=== PATIENT | female | born 1995 ===

== ENCOUNTER 2025-10-02 19:51 | Observation (INO) | payer OTHER, SELFPAY ==
[2025-10-02] VITALS (43 sets, daily range): BP systolic 91–170; BP diastolic 50–95; PULSE 72–141; RESP 10–20; TEMP 36.3–37.3; O2SAT 95–100; BMI 34.0
[2025-10-02 20:27] LABS: Abs Immature Grans 0.04 10^3/uL (0.0-0.06); HCT 34.8 % (36.0-46.0); HGB 11.9 g/dL (11.2-15.7); Immature Grans % 0.4 %; MCH 30.7 pg (27.0-33.0); MCHC 34.2 % (32.0-36.0); MCV 90 fL (80-95); MPV 10.3 fL (8.0-11.0); Platelet Count 191 10^3/uL (130-400); RBC 3.88 10^6/uL (3.93-5.22); RDW 12.3 % (11.7-14.6); RDW-SD 40.0 fL; WBC 9.33 10^3/uL (4.4-10.8)
[2025-10-02] MEDS: Tranexamic Acid 1,000 MG/10 ML VIAL 1000 MG IVP (20:37)
[2025-10-02 20:40] LABS: INR 1.0 (0.9-1.1); PTT Activated 26.0 sec (20.6-30.2); Prothrombin Time 10.0 sec (9.1-11.1)
[2025-10-02 20:43] LABS: ALT 19 U/L (10-49); AST 20 U/L (<34); Albumin 4.2 g/dL (3.2-5.0); Alkaline Phosphatase 74 U/L (46-116); Anion Gap 8.5 mmol/L (3-11); BUN 9 mg/dL (9-23); Bilirubin, Total 0.5 mg/dL (0.2-1.2); CO2 25.5 mmol/L (20.0-31.0); Calcium 9.1 mg/dL (8.3-10.6); Chloride 109 mmol/L (98-107); Glucose 109 mg/dL (74-106); Magnesium 1.9 mg/dL (1.6-2.6); Potassium 3.3 mmol/L (3.5-5.1); Sodium 143 mmol/L (136-145); Total Protein 6.8 g/dL (5.7-8.2)
--- NOTE | 2025-10-02 20:43 | ED.GENADUL_ITS ---
Discharge Plan Disposition Patient Disposition: Admit to [facility] Condition: Serious Discharge Details Clinical Impression: Incomplete miscarriage, Hemorrhagic shock ED Provider: Patricia Ledezma Home Meds and New Rx's Prescriptions: No Action No Known Home Meds HPI General Mode of arrival: EMS . Date/Time Provider Initiated Documentation: 10/02/25 20:17 . Limitations to Documentation: no limitations . Information obtained by: patient, family, EMS and old records reviewed . HPI Narrative: This is a 30-year-old female patient, G2, P1 at an estimated 13 weeks gestation by last menstrual cycle, who experienced a miscarriage with growth arrested at approximately 5 weeks identified on ultrasound on Wednesday, presenting for heavy vaginal bleeding. The patient states that she started to have some spotting on Wednesday, has not received any medications or interventions for her miscarriage as of yet. She is following with Rogelio SECURITY INSTALLATION TECHNICIAN. She states that she started to bleed very heavily this evening, noted a large amount of blood and clots in the toilet bowl. She is experiencing cramping/contraction-like lower abdominal discomfort, was noted to be tachycardic but otherwise hemodyna mically appropriate by EMS, and received IV fluids. Medical control discussed use of TXA, given the early and the lack of hypotension the decision was made to hold given the thromboembolic risks. The patient has not had any prior miscarriages or complications with pregnancies. Had a with her last delivery 3.5 years ago. Otherwise healthy. States that she feels quite dizzy and unwell. Related Data Home Medications ?Medication ?Instructions ?Recorded ?Confirmed Unknown [No Known Home Meds] 10/02/25 1 Allergies Allergy/AdvReac Type Severity Reaction Status Date / Time No Known Allergies Allergy Unverified 10/02/25 21:19 General Stated Complaint: SECURITY INSTALLATION TECHNICIAN MEME: 3 Exam Narrative Exam Narrative: Gen: Awake and alert, in no apparent distress HEENT: Non-icteric sclera Neck: Supple Lungs: No apparent respiratory distress, normal respiratory effort. CV: Appears well perfused, heart with cardiac rate, regular rhythm, strong pulses Abdomen: Non-distended, soft, tender to palpation in the suprapubic region without rigidity, rebound, or guarding. Pelvic: Pelvic examination supervised by CRISTIN Evans, reveals normal external female genitalia with a large amount of bright red blood and large clots pouring out of the vaginal introitus. Numerous 4 x 4's and ring forceps were used to remove blood products from the vaginal vault. I am unable to visualize the cervix due to brisk bleeding. Bimanual examination reveals an open cervix but no cervical motion tenderness. MSK: Moves 4 extremities without apparent limitation in ROM. No peripheral edema Skin: Visualized skin without rashes, cyanosis. Neuro: Normal Gait, no obvious focal deficits or facial asymmetry. Speaks in full, clear sentences. Psych: Appropriate for situation. Course Vital Signs Vital signs: Vital Signs Temperature 37.3 C 10/02/25 19:51 Pulse 110 H 10/02/25 19:51 Respiratory Rate 20 10/02/25 19:51 Blood Pressure 170/95 H 10/02/25 19:51 Pulse Oximetry 100 10/02/25 19:51 Temperature 37.3 C 10/02/25 19:51 Temperature Source Oral 10/02/25 19:51 Pulse 91 H 10/02/25 20:36 Pulse 91 H 10/02/25 20:36 Respiratory Rate 13 10/02/25 20:36 Blood Pressure 99/53 L 10/02/25 20:36 Blood Pressure Mean 64 10/02/25 20:36 Pulse Oximetry 95 10/02/25 20:36 Oxygen Delivery Method Room Air 10/02/25 19:51 Oxygen Flow Rate 0 10/02/25 19:51 Pain Level 10 10/02/25 19:51 Lab/Test Results Lab/Test Results: Laboratory Tests Range/Units 10/02/25 10/02/25 19:57 20:24 WBC (4.4-10.8) 10^3/uL 9.33 RBC (3.93-5.22) 10^6/uL 3.88 L Hgb (11.2-15.7) g/dL 11.9 Hct (36.0-46.0) % 34.8 L MCV (80-95) fL 90 MCH (27.0-33.0) pg 30.7 MCHC (32.0-36.0) % 34.2 RDW (11.7-14.6) % 12.3 Plt Count (130-400) 10^3/uL 191 MPV (8.0-11.0) fL 10.3 Immature Gran % % 0.4 Neutrophils % % 75.0 Lymphocytes % % 17.5 Monocytes % % 6.4 Eosinophils % % 0.4 Basophils % % 0.3 Nucleated RBC % (0.0-0.3) % 0.0 Absolute Neutrophils (1.2-6.7) 10^3/uL 6.99 H Absolute Lymphocytes (1.2-3.4) 10^3/uL 1.63 Absolute Monocytes (0.1-0.8) 10^3/uL 0.60 Absolute Eosinophils (0.0-0.7) 10^3/uL 0.04 Absolute Basophils (0.0-0.2) 10^3/uL 0.03 PT (9.1-11.1) sec 10.0 INR (0.9-1.1) 1.0 APTT (20.6-30.2) sec 26.0 VBG Lactate (<or=2.0) mmol/L 1.7 Sodium (136-145) mmol/L 143 Potassium (3.5-5.1) mmol/L 3.3 L Chloride (98-107) mmol/L 109 H Carbon Dioxide (20.0-31.0) mmol/L 25.5 Anion Gap (3-11) mmol/L 8.5 BUN (9-23) mg/dL 9 Creatinine (0.55-1.02) mg/dL 0.82 Est GFR (CKD-EPI 2020) (mL/min/1.73m2) 82.26 Glucose (74-106) mg/dL 109 H Calcium (8.3-10.6) mg/dL 9.1 Magnesium (1.6-2.6) mg/dL 1.9 Total Bilirubin (0.2-1.2) mg/dL 0.5 AST (<34) U/L 20 ALT (10-49) U/L 19 Alkaline Phosphatase (46-116) U/L 74 Total Protein (5.7-8.2) g/dL 6.8 Albumin (3.2-5.0) g/dL 4.2 Crossmatch See Detail Medical Decision Making This is a 30-year-old female patient presenting for evaluation of vaginal bleeding. Differential includes but is not limited to miscarriage, likely incomplete given the active bleeding and open cervix. No fever or purulent discharge to increase my concern for septic , PID/TOA. Considered anemia, the patient's brisk hemorrhage is quite concerning for hemorrhagic shock though at this time the patient is reassuringly without hypotension. The patient reports that her blood type is O+ and she is amenable to blood pressure transfusion if needed. The patient had a formal ultrasound outpatient which demonstrated an intrauterine making ruptured ectopic unlikely. After removal of a large volume of clots from the vaginal vault, the bleeding has slightly slowed, but continues at a brisk enough pace that I am concerned the patient will require D&C for definitive management. Labs including CBC, CMP, magnesium, type and screen, and coags were sent. SECURITY INSTALLATION TECHNICIAN was consulted. -On my reevaluation the patient has become quite pale, had a drop in her heart rate to the 60s, and a drop in her blood pressure to the 90s systolic. She fearless near syncopal with significant dizziness, and for this reason the decision was made to proceed with emergency release uncrossed matched PRBCs, 2 units transfused and consent obtained. I also provided the patient with 1 g of TXA. I reviewed labs which show no leukocytosis, anemia, or thrombocytopenia, lactate 1.7, chemistry panel with a slightly low potassium to 3.3, no other electrolyte derangements, evidence of kidney dysfunction or liver disease. We will hold on repletion during active resuscitation. The SECURITY INSTALLATION TECHNICIAN team evaluated the patient at bedside and are recommending D&C for definitive management. The patient will be transferred directly to the OR. She remained hemodynamically improved after transfusion, and left our department without incident. Patricia Ledezma MD Critical Care Time Critical Care Time Critical Care Time: Yes Total Critical Care Time: 35 Attestation: Upon my evaluation, this patient had a high probability of imminent or life- threatening deterioration due to hemorrhagic shock due to miscarriage, which required my direct attention, intervention, and personal management. I have personally provided 35 minutes of critical care time exclusive of time spent on separately billable procedures. Time includes review of laboratory data, radiology results, discussion with consultants, and monitoring for potential decompensation. Interventions were performed as documented above. Patricia Ledezma MD [facility] All Active Problems (Updated 10/02/25 @ 20:51 by Patricia Ledezma MD) Hemorrhagic shock (Acute) Incomplete miscarriage (Acute) Social History Smoking/Tobacco Use Status: Never Smoking risk assessment performed?: Yes Alcohol Intake: never Drug use: Occasionally Substance use type: does not use Details: Occ marijuana, but not during POCUS Exam (ED) Limited OB Exam DATE OF EXAM:: 10/02/25 TIME OF EXAM:: 19:42 PROVIDER THAT PERFORMED THE STUDY: Patricia Ledezma Type of Exam: Pelvic OB Trans Abdominal REASON FOR EXAM: Vaginal Bleeding VISUALIZED STRUCTURES: Gestational sac and Uterus Exam Complete. INCIDENTAL FINDINGS: Intrauterine contents appreciated, no free fluid
--- NOTE | 2025-10-02 20:59 | HPE_ITS ---
Date of service: 10/02/25 Time of Service: 20:59 Assessment and Plan Assessment and plan (1) Incomplete miscarriage: Status: Acute (2) Hemorrhagic shock: Status: Acute Assessment and plan: We discussed her situation with an incomplete miscarriage and my recommendations to go to the OR for uterine evacuation. She was given the option for repeat pelvic exam with possible removal of POC in the ER room but she declined. We reviewed the procedure of suction D&C and the risks such as infection, bleeding, pain and injury to nearby organs such as the bowel or bladder. All their questions were answered and the consent was signed. History of Present Illness History of Present Illness Chief Complaint: vaginal bleeding Narrative: Pt is a 30yo with an incomplete . Her LMP was Jun 27. She called [facility] parachute harness rigger just after thanksgiving and was scheduled for her first ultrasound 4 days ago where she was told she was measuring 5wks and it was most likely an MAB but they wanted to schedule a repeat sono in 1 wk. She did have labs drawn but was never given results. 2 days ago she started spotting and it slowly increased in amount. Then around 7pm tonight she started bleeding more heavily and called the ambulance and was brought to the ED. She reports uterine cramping as well. She denies other sxms. She is feeling light headed. On arrival to the ED she was bleeding significantly and the ED doc was unable to visualize her cervix due to the amount of bleeding. EBL 500ml at that time. She was already receiving her first unit of blood on my arrival to see her. She had also just received TXA. Her parachute harness rigger hx is significant for 1 other that resulted in a full term delivery of a male. She says she had a long labor and ended up with a CS which was converted to general anesthesia partway through due to her level of discomfort. She had some minor issues with the incision healing afterwards. No anesthesia issues otherwise. PMH: mild exercise induced asthma, heart murmur since high school - no full work up as she hasn't had any issues. Soc Hx: occasional MJ use, no alcohol or tobacco use. Lives with male partner and their son. Review of Systems Genitourinary Genitourinary: Reports system reviewed and no additional complaints, except as documented PFSH All Active Problems (Updated 10/02/25 @ 20:51 by Patricia Ledezma MD) Hemorrhagic shock (Acute) Incomplete miscarriage (Acute) Social History Smoking/Tobacco Use Status: Never Smoking risk assessment performed?: Yes Alcohol Intake: never Drug use: Occasionally Substance use type: does not use Details: Occ marijuana, but not during Meds Allergies and Home Medications Allergies Allergy/AdvReac Type Severity Reaction Status Date / Time No Known Allergies Allergy Unverified 10/02/25 21:19 Home Medications ?Medication ?Instructions ?Recorded ?Confirmed ?Type Unknown [No Known Home Meds] 10/02/25 1 History Exam Narrative Exam Narrative: Pt lying in bed, very pale appearing, tired during conversation. Const General: cooperative HENMT Head: normocephalic and atraumatic Ears: hearing grossly normal bilaterally Resp Effort & Inspection: normal respiratory effort and able to speak in complete sentences Other: Small amount of blood in pad recently put in place and pelvic exam by ED Doc - exam not repeated due to plan to go to OR. Lower abdomen mildly tender to palpation. Neuro General: patient awake Psych Appearance: grossly normal Mental Status: mental status grossly normal Speech and Movement: speech and movement normal Affect: normal affect Attitude: cooperative Thought Process: normal Thought Content: normal Results Labs 10/02/25 19:57 10/02/25 19:57 Labs: Laboratory Results - last 24 hr 10/02/25 10/02/25 19:57 20:24 WBC 9.33 RBC 3.88 L Hgb 11.9 Hct 34.8 L MCV 90 MCH 30.7 MCHC 34.2 RDW 12.3 Plt Count 191 MPV 10.3 Immature Gran % 0.4 Neutrophils % 75.0 Lymphocytes % 17.5 Monocytes % 6.4 Eosinophils % 0.4 Basophils % 0.3 Nucleated RBC % 0.0 Absolute Neutrophils 6.99 H Absolute Lymphocytes 1.63 Absolute Monocytes 0.60 Absolute Eosinophils 0.04 Absolute Basophils 0.03 PT 10.0 INR 1.0 APTT 26.0 VBG Lactate 1.7 Sodium 143 Potassium 3.3 L Chloride 109 H Carbon Dioxide 25.5 Anion Gap 8.5 BUN 9 Creatinine 0.82 Est GFR (CKD-EPI 2020) 82.26 Glucose 109 H Calcium 9.1 Magnesium 1.9 Total Bilirubin 0.5 AST 20 ALT 19 Alkaline Phosphatase 74 Total Protein 6.8 Albumin 4.2 Crossmatch See Detail Last Vital Signs Temp 97.9 F 10/02/25 20:57 Pulse 83 10/02/25 20:56 Resp 18 10/02/25 20:56 BP 113/69 10/02/25 20:56 Pulse Ox 97 10/02/25 20:56 VTE Prohylaxis Risk Level: Low Risk Contraindications: Active bleed/high bleed risk Prophylaxis: Patient ambulatory Time Spent Time spent with Patient: <40 minutes Time was spent: preparing to see the patient(eg.review tests), obtaining and/or reviewing separately otained hiistory, ordering medications,tests, procedures, indepentently interpreting results and counseling the patient
--- NOTE | 2025-10-02 21:13 | ANES.PREOP_ITS ---
General Info Date of Service Date Performed: 10/02/25 Height: 5 ft 6 in Weight: 95.5 kg Body Mass Index (BMI): 34.0 Surgical Procedure: Suction D&C Meds Allergies and Home Medications Allergies Allergy/AdvReac Type Severity Reaction Status Date / Time No Known Allergies Allergy Unverified 10/02/25 21:19 Home Medication ?Medication ?Instructions ?Recorded Unknown [No Known Home Meds] 10/02/25 Current Visit Medications: see EMr PFS Active Problems Active Problems: Problem Status Onset Code Hemorrhagic shock Acute R57.8 Incomplete miscarriage Acute O03.4 Tobacco Smoking/Tobacco Use Status: Never Alcohol Alcohol Intake: never Substance Use Substance use type: does not use Details: Occ marijuana, but not during Vital Signs and Lab Results Vital Signs Most Recent Vital Signs in EMR: Most Recent Vital Signs Temp Pulse Resp BP Pulse Ox 36.6 C 82 12 112/72 95 10/02/25 20:57 10/02/25 21:02 10/02/25 21:02 10/02/25 21:02 10/02/25 21:00 Lab Results 10/02/25 19:57 10/02/25 19:57 Blood Type / Crossmatch: 2 Antibody Screen NEGATIVE Today Crossmatch See Detail Today Complete Blood Count: 2 WBC, (4.4-10.8) 9.33 10^3/uL Today, 19:57 RBC, (3.93-5.22) 3.88 10^6/uL L Today, 19:57 Hgb, (11.2-15.7) 11.9 g/dL Today, 19:57 Hct, (36.0-46.0) 34.8 % L Today, 19:57 Plt Count, (130-400) 191 10^3/uL Today, 19:57 VBG Lactate, (<or=2.0) 1.7 mmol/L Today, 20:24 Complete Metabolic Panel: 2 Sodium, (136-145) 143 mmol/L Today, 19:57 Potassium, (3.5-5.1) 3.3 mmol/L L Today, 19:57 Chloride, (98-107) 109 mmol/L H Today, 19:57 Carbon Dioxide, (20.0-31.0) 25.5 mmol/L Today, 19:57 BUN, (9-23) 9 mg/dL Today, 19:57 Creatinine, (0.55-1.02) 0.82 mg/dL Today, 19:57 Est GFR (CKD-EPI 2020), (mL/min/1.73m2) 82.26 Today, 19:57 Magnesium, (1.6-2.6) 1.9 mg/dL Today, 19:57 Calcium, (8.3-10.6) 9.1 mg/dL Today, 19:57 Albumin, (3.2-5.0) 4.2 g/dL Today, 19:57 Glucose, (74-106) 109 mg/dL H Today, 19:57 Liver Function Panel: 2 ALT, (10-49) 19 U/L Today, 19:57 AST, (<34) 20 U/L Today, 19:57 Coagulation Panel: 2 INR, (0.9-1.1) 1.0 Today, 19:57 PT, (9.1-11.1) 10.0 sec Today, 19:57 APTT, (20.6-30.2) 26.0 sec Today, 19:57 Anesthesia Assessment and Plan Anesthesia History Personal History: No History of Anesthesia Complications Family History: No Family History of Anesthesia Complications Exercise Tolerance Exercise Tolerance: Metabolic Equivalents>4 Pertinent Negatives Pertinent Negatives: No Major Cardiovascular Symptoms or Complaints and No Major Pulmonary Symptoms or Complaints Cardiac & Pulmonary Exam Cardiac Exam: Normal S1/S2 Heart Sounds and Heart Murmur Present Pulmonary Exam: Clear Bilateral Breath Sounds Implantable Cardiac Device Does patient have a Pacemaker or an ICD?: No Airway Exam Known Difficult Airway: No Mallampati Class: 3 Mouth Opening: Normal (> 3cm) Thyromental Distance: Greater than 3 cm Neck Range of Motion: Full ROM Neck Circumference: Thick Teeth Condition: Normal Dentition (impacted wisdom teeth) ASA Classification ASA Score: ASA 2 Emergency Case?: No NPO Status NPO Status: Full Stomach (couple of crackers 3 hours ago) Status Status: Not Relevant due to Medical History Anesthesia Plan Resuscitation Status: Full Code Anesthesia Technique: General Anesthesia Airway Planned: Endotracheal Tube Monitors Used: Standard Monitors Preoperative Comments:: RSI TXA and 2 units PRBCs given in ER
[2025-10-02] MEDS: Doxycycline Hyclate 100 MG CAP 200 MG PO (21:19)
[2025-10-02] MEDS: Lactated Ringers 1,000 ML 30 ML IV (21:47)
--- NOTE | 2025-10-02 22:02 | POCSPONT_PTH ---
PATIENT: Julia Pandya LOC: OBS U#:[id number] AGE/SX: 30/F ROOM: OBS.306 RE10/03/[address]: Renate Recinos MD : 1995 BED: A DIS: 10/03/2025 SPEC #: [id number] RECD: 10/03/25 12:53 STATUS: JOSE REQ #: [id number] RENE: 10/02/25 22:[address]: Renate Recinos DEPT: Surgical Specimen RECD BY: Linda Umana ENTERED: 10/03/25 12:54 SP TYPE: ML DOWELL DR: None Tissues: 1 - ,SPONTANEOUS Procedures: GROSS AND MICRO LEVEL 4 Comments: [id number]
--- NOTE | 2025-10-02 22:10 | NUR.NOTE ---
Nursing Note: 2 units PRBC uncrossmatched issued @ 2029 in cooler - 1st unit PRBC uncrossmatched; Started-2032, Ended-2106 (unit ending in [id number]) - TXA 1gram; Started- 2036, given over 15 min. - 2nd unit PRBC uncrossmatched; Started- 2052, Ended- 2123 (unit ending in [id number]) over 2u PRBC total temp change from 36.3C to 37C 200mg doxycycline PO administered prior to OR per OB provider.
--- NOTE | 2025-10-02 22:29 | ROE_ITS ---
Operative Note Operative Note PRE-OP DIAGNOSIS: Incomplete miscarriage POST-OP DIAGNOSIS: same PROCEDURE: Suction D&C SURGEON: Renate Recinos Refer to Anesthesia Record ESTIMATED BLOOD LOSS: 100 COMPLICATIONS: None Patient was transported to: PACU Patient's condition: stable Indications: Pt is a 30yo with a first trimester incomplete miscarriage with hemorrhage and hypotension in the ED. Findings: Products of conception with resulting small and firm uterus. Procedure Description: After informed consent was signed the patient was taken to the operating room and given General endotracheal anesthesia. When moved to the OR table there was a large clot on her pad and one that came from the vagina ~300ml. She was prepped and draped in the dorsal lithotomy position in the [facility]. A time out was performed. Her bladder was drained of urine if not done immediately prior to entrance to the OR. Exam under anesthesia revealed normal external genitalia, vagina normal for age and a normal sized uterus. A speculum was placed into the vagina to reveal the cervix. The anterior lip of the cervix was grasped with a single tooth tenaculum. The cervix was already dilated. The suction device was assembled and turned on. The uterine cavity was gently suctioned to remove the products of conception. The bleeding decreased significantly and there was a gritty texture in all four quadrants of the uterine cavity. There was minimal bleeding and the uterus was noted to be firm. The tenaculum was removed from the cervix with good hemostasis. The s peculum was removed from the vagina. The patient was placed back into the supine position. She was moved to the stretcher and taken to the recovery room in stable condition. Date of Procedure: 10/02/25
--- NOTE | 2025-10-02 22:48 | W.ANESPOSTOP ---
Postoperative Evaluation Date, Time and Location Date Performed: 10/02/25 Time Performed: 22:44 Patient Location: PACU Vital Signs Most Recent Imported Vital Signs: Most Recent Vital Signs Temp Pulse Resp BP Pulse Ox 36.6 C 107 H 14 121/77 100 10/02/25 22:40 10/02/25 22:40 10/02/25 22:40 10/02/25 22:40 10/02/25 22:40 Pain Score Most Recent Pain Score: Most Recent Pain Score Pain Level 0 10/02/25 22:40 Assessment Mental Status: Awake (Alert & Oriented to Patient Baseline) Airway and Respiratory Function: Patent airway with normal (patient baseline) respiratory exam Cardiovascular Function: Hemodynamically Stable Hydration Status: Adequately Hydrated Nausea & Vomiting: No Nausea or Vomiting Pain: Pt. Denies Any Pain Peripheral Nerve Block: Patient did not receive a nerve block
--- NOTE | 2025-10-02 23:36 | PDOC.DSDIS_ITS ---
Date of service: 10/02/25 Discharge Plan Disposition Patient Disposition: Admit to [facility] Condition: Serious Discharge Details Clinical Impression: Incomplete miscarriage, Hemorrhagic shock Primary Care Provider: None,None ED Provider: Patricia Ledezma Home Meds and New Rx's Prescriptions: No Action No Known Home Meds DS: Diagnosis Discharge Diagnosis (1) Incomplete miscarriage: Status: Acute (2) Hemorrhagic shock: Status: Acute
[2025-10-02 23:50] LABS: Abs Immature Grans 0.12 10^3/uL (0.0-0.06); HCT 36.2 % (36.0-46.0); HGB 12.5 g/dL (11.2-15.7); Immature Grans % 0.6 %; MCH 30.7 pg (27.0-33.0); MCHC 34.5 % (32.0-36.0); MCV 89 fL (80-95); MPV 10.2 fL (8.0-11.0); Platelet Count 197 10^3/uL (130-400); RBC 4.07 10^6/uL (3.93-5.22); RDW 12.9 % (11.7-14.6); RDW-SD 42.1 fL; WBC 19.36 10^3/uL (4.4-10.8)
[2025-10-03 04:45] VITALS: BP 117/76; PULSE 96; RESP 17; TEMP 36.6; O2SAT 97
--- NOTE | 2025-10-03 08:27 | NUR.NOTE ---
Acccessed Pt chart to print a face sheet for [facility].Then faxed it to them.
--- NOTE | 2025-10-03 09:58 | W.PM.DSUDISC ---
Date of service: 10/03/25 Discharge Plan Disposition Condition: Serious Discharge Details Reason For Visit: Hemorrhage Admit Date/Time: 10/02/25 22:45 Admit Provider: Renate Recinos Attending Provider: Renate Recinos Primary Care Provider: None,None Home Meds and New Rx's Prescriptions: No Action No Known Home Meds Discharge Data Discharge Physician: Renate Recinos DS: Diagnosis Discharge Diagnosis (1) Incomplete miscarriage: Status: Acute Asessment and Plan: Pt is a 30yo s/p D&C for incomplete miscarriage with hemorrhage. The procedure was uncomplicated and she recovered well. She desired to stay until the am rather than go home in the middle of the night. She is doing well with no pain and very minimal bleeding. She will f/u with me in the office in 1-2wks. We reviewed reasons to call or seek urgent care prior to this. Do not put anything in the vagina until after the f/u visit. (2) Hemorrhagic shock: Status: Acute
== END 2025-10-03 09:10 ==
LOC: ER 22:44 → OBS 23:43
PROVIDERS: Emergency Medicine; Admitting Provider Obstetrics & Gynecology; Emergency Provider Obstetrics & Gynecology; Visit Provider Obstetrics & Gynecology
PROC: (CPT 59841; principal; 2025-10-02 21:45)
DX: O03.31 Shock following incomplete spontaneous abortion (principal); O03.1 Delayed or excessive hemorrhage following incomplete spontaneous abortion; Z3A.13 13 weeks gestation of pregnancy
CPT/HCPCS: 59812; 36415; 76815; 80053; 86850; 86900; 86901; 86920; 88305; 96374; 99291; 83605; 83735; 85025; 85610; 85730; J1100; J2003; J2371; J2405; J2704; J3010; P9016